=== PATIENT | male | born 1995 ===

== ENCOUNTER 2023-01-28 13:42 | Inpatient (IN) | payer MEDICAID, OTHER ==
[~2023-01-28] VITALS: Ht 172.7 cm; Wt 68.3 kg
[2023-01-28] MEDS ORDERED: NALOXONE HCL 2 MG in DEXTROSE 495 ML IV ONE (14:00)
[2023-01-28 14:43] LABS: Basophils # (auto) 0.2 10 ^3/uL (0-0.2); Basophils % (auto) 2.1 % (0.0-2.0); Eosinophils # (auto) 0.2 10 ^3/uL (0-0.8); Hematocrit 42.3 % (41.0-53.0); Hemoglobin 14.1 g/dL (13.5-17.5); Lymphocytes # (auto) 0.6 10 ^3/uL (0.4-5.4); Lymphocytes % (auto) 6.7 % (10.0-50.0); Mean Corpuscular Hemoglobin 31.5 pg (28.0-32.0); Mean Corpuscular Hgb Conc. 33.4 g/dL (32.0-36.0); Mean Corpuscular Volume 94.3 fL (80.0-100.0); Monocytes # (auto) 0.3 10 ^3/uL (0-1.3); Monocytes % (auto) 3.7 % (0.0-12.0); Neutrophils # (auto) 7.1 10 ^3/uL (1.6-8.6); Neutrophils % (auto) 85.5 % (37.0-80.0); Red Blood Cells 4.49 10^6/uL (4.5-5.90); Red Cell Distribution Width 13.4 % (11.8-14.3); White Blood Cell 8.3 10^3/uL (4.4-10.8)
[2023-01-28 14:55] LABS: INR 0.93 (0.9-1.15)
[2023-01-28] MEDS ORDERED: AMPICILLIN & SULBACTAM SODIUM 3 GM in SODIUM CHL 0.9% 100 ML IV SCH (15:00)
[2023-01-28 15:06] LABS: Alanine Aminotransferase 64 U/L (16-61); Anion Gap 7 (5-15); Aspartate Aminotransferase 70 U/L (15-37); BUN/Creatinine Ratio 13.6 (10.0-20.0); Blood Alcohol < 3.0 mg/dL (0-5); Blood Urea Nitrogen 16 mg/dL (7-18); Calcium 8.6 mg/dL (8.5-10.1); Carbon Dioxide 25 mmol/L (21-32); Chloride 106 mmol/L (98-107); GFR African American 96 mL/min; GFR Non-African American 79 mL/min; Glucose 227 mg/dL (74-106); Lipase 412 U/L (73-393); Magnesium 2.6 mg/dL (1.6-2.6); Potassium 3.4 mmol/L (3.5-5.1); Sodium 138 mmol/L (136-145)
[2023-01-28 15:10] LABS: Alkaline Phosphatase 72 U/L (45-117); Bilirubin, Total 0.4 mg/dL (0.2-1.0); Phosphorus 5.6 mg/dL (2.5-4.90); Total Protein 7.4 g/dL (6.4-8.2)
[2023-01-28 15:12] LABS: Acetaminophen 14.2 ug/mL (10-30); Salicylate < 1.7 mg/dL (2.8-20.0)
[2023-01-28] MEDS ORDERED: HALOPERIDOL LACTATE 5 MG/ML INJ VIAL ONE (16:39)
[2023-01-28] MEDS ORDERED: diphenhdrAMINE HCL 50 MG/1 ML VL ONE (16:39)
[2023-01-28] MEDS ORDERED: LORazepam 2MG/ML-1ML VIAL ONE (16:39)
[2023-01-28] MEDS ORDERED: HALOPERIDOL LACTATE 5 MG/ML INJ VIAL IM ONE ×2 (16:45)
[2023-01-28] MEDS ORDERED: ONDANSETRON HCL 4 MG/2 ML VIAL IV PRN (16:45)
[2023-01-28] MEDS ORDERED: SODIUM CHLORIDE 0.9% 1,000 ML IV ONE (16:45)
[2023-01-28] MEDS ORDERED: LORazepam 2MG/ML-1ML VIAL IM ONE (16:45)
[2023-01-28] MEDS ORDERED: LORazepam 2MG/ML-1ML VIAL IV ONE (16:45)
[2023-01-28] MEDS ORDERED: diphenhdrAMINE HCL 50 MG/1 ML VL IM ONE ×2 (16:45)
[2023-01-28] MEDS: PIPERACILLIN-TAZOB 3.375GM 100 ML IV SCH (18:08)
[2023-01-28] MEDS: SOD CHL 0.9%/ KCL 20MEQ 1,000 ML IV SCH (18:09)
[2023-01-28 22:12] LABS: Alcohol, Urine < 3.0 mg/dL (0-10); Amphetamine Screen, Urine NEGATIVE (NEGATIVE); Barbiturate Scree,Urine NEGATIVE (NEGATIVE); Benzodiazephine Screen, Urine POSITIVE (NEGATIVE); Cannabinoid Screen, Urine NEGATIVE (NEGATIVE)
[2023-01-28 22:15] LABS: Urine Bacteria NONE SEEN /hpf (None Seen); Urine Blood Negative /uL (Negative); Urine Mucus FEW (None Seen); Urine Specific Gravity 1.014 (1.001-1.035); Urine WBC 4 /hpf (0 - 3)
[2023-01-28 22:20] LABS: Cocaine Screen, Urine POSITIVE (NEGATIVE); Opiate Scree,Urine POSITIVE (NEGATIVE); Phencyclidine Screen, Urine NEGATIVE (NEGATIVE)
[2023-01-29] MEDS: PIPERACILLIN-TAZOB 3.375GM 100 ML IV SCH (02:32)
[2023-01-29] MEDS: SOD CHL 0.9%/ KCL 20MEQ 1,000 ML IV SCH (02:32)
[2023-01-29 02:36] VITALS: BP 110/68
[2023-01-29] MEDS ORDERED: PANTOPRAZOLE 40 MG/10 ML VIAL INJ IV SCH (10:00)
== END 2023-01-29 02:44 | disposition left against medical advice (07) | DRG 812 ==
LOC: ER 13:42 → EDBD 13:42 → TELE 16:44
PROVIDERS: ADMIT Nurse Practitioner Family; ATTEND Nurse Practitioner Family
DX: T40.2X1A Poisoning by other opioids, accidental (unintentional), initial encounter (principal); J69.0 Pneumonitis due to inhalation of food and vomit; G92.9 Unspecified toxic encephalopathy; E72.20 Disorder of urea cycle metabolism, unspecified; R06.03 Acute respiratory distress; Z53.29 Procedure and treatment not carried out because of patient's decision for other reasons; R09.02 Hypoxemia; E87.6 Hypokalemia; R73.9 Hyperglycemia, unspecified; E83.39 Other disorders of phosphorus metabolism; F10.10 Alcohol abuse, uncomplicated; R74.01 Elevation of levels of liver transaminase levels; Z96.642 Presence of left artificial hip joint; Y90.9 Presence of alcohol in blood, level not specified; Y92.89 Other specified places as the place of occurrence of the external cause
CPT/HCPCS: 36415; 36600; 71045; 80053; 80307; 80320; 80329; 81001; 82140; 82550; 82805; 83036; 83690; 83735; 83880; 84100; 84484; 85025; 85610; 96365; 96367; 96372; 99291; G0378; J2405; J2543